=== PATIENT | male | born 1990 | race African-American/Black ===

== ENCOUNTER 2016-11-04 18:07 | Inpatient (IN) | payer OTHER ==
[~2016-11-04] VITALS: Ht 189.2 cm; Wt 76.7 kg
[2016-11-04 23:36] VITALS: BP 143/83; PULSE 58; RESP 18; TEMP 97.4; O2SAT 98
[2016-11-05] MEDS ORDERED: ACETAMINOPHEN 325 MG TAB PO PRN (01:00)
[2016-11-05] MEDS ORDERED: MAGNESIUM HYDROXIDE SUSP 30 ML CUP PO PRN (01:00)
[2016-11-05] MEDS ORDERED: diphenhydrAMINE HCL 50 MG/ML VIAL - HS PRN IM (01:00)
[2016-11-05] MEDS ORDERED: BENZTROPINE MESYLATE 1 MG TAB PO PRN (01:00)
[2016-11-05] MEDS ORDERED: BENZTROPINE MESYLATE 2 MG/2 ML VIAL IM PRN (01:00)
[2016-11-05] MEDS ORDERED: ALUMINUM/MAGNESIUM/SIMETH 30 ML CUP PO PRN (01:00)
[2016-11-05] MEDS ORDERED: LORazepam 2 MG/ML VIAL IM PRN (01:00)
[2016-11-05] MEDS: NICOTINE 21 MG/24 HR PATCH T-DERMAL SCH (08:26)
[2016-11-05 09:25] LABS: ANION GAP 15 MEQ/L (5-15); BICARBONATE 21.1 MEQ/L (21.0-32.0); BLOOD UREA NITROGEN 11 MG/DL (7-18); CHLORIDE 104 MEQ/L (98-107); GLOMERULAR FILTRATION RATE 61 ML/MIN (>89); POTASSIUM 3.6 MEQ/L (3.5-5.1); SODIUM (NA) 140 MEQ/L (136-145)
[2016-11-05 09:29] LABS: LDL CHOLESTEROL 126 MG/DL (0-99)
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
[2016-11-05 18:25] VITALS: BP 120/67; PULSE 77; RESP 16; TEMP 98.1; O2SAT 100
[2016-11-05] MEDS: REMOVE OLD NICOTINE PATCH T-DERMAL SCH (21:00)
[2016-11-05 22:12] VITALS: BP 146/80; PULSE 76
[2016-11-05] MEDS: PRAZOSIN HCL 1 MG CAP PO SCH (22:46)
[2016-11-06] MEDS: diphenhydrAMINE HCL 50 MG CAP - HS PRN PO (02:38)
[2016-11-06 06:20] VITALS: BP 147/90; PULSE 54; RESP 18; TEMP 98; O2SAT 96
[2016-11-06] MEDS: ESCITALOPRAM OXALATE 10 MG TAB PO SCH (08:08)
[2016-11-06] MEDS: LORazepam 1 MG TAB PO PRN (08:08)
[2016-11-06] MEDS: NICOTINE 21 MG/24 HR PATCH T-DERMAL SCH (08:09)
[2016-11-06 10:05] LABS: HEMOGLOBIN A1a 1.3 %; HEMOGLOBIN A1b 1.5 %; HEMOGLOBIN Ao 86.4 %; HEMOGLOBIN LA1C 1.9 %; HEMOGLOBIN P3 3.2 %
--- NOTE | 2016-11-06 17:25 | HHI.PYPN ---
Subjective Remarks Pt seen and discussed with staff. He is tolerating medications without side effects. He reports that he slept about 3 hours last night. He received a dose of ativan this morning for an anxiety attack. He reports depression persists but he is feeling better today. NO AH today. Pt signed an ROR but states that he did so because he wanted to make sure that he could see the doctor again. Explained to pt that he would be seen by a physician daily until discharge and pt requested to rescind ROR. Objective Alert: Yes [place]: Person, Place, Date, Situation Mood: Depressed Affect: Flat Memory Intact: Immediate, Recent, Remote Hallucinations: Other (none ) Delusions: No Delusion Type: Other (none) Suicidal: Ideation (denies) Homicidal: Ideation (denies) Insight/Judgment limited Vitals/IOs Vital Signs Date Time Temp Pulse Resp B/P Pulse Ox O2 Delivery O2 Flow Rate FiO2 11/06/16 06:20 98.0 54 18 147/90 96 Assessment & Plan Problem List: (1) Adjustment disorder, unspecified ICD Code: F43.20 (2) Post-traumatic stress disorder, chronic ICD Code: F43.12 Assessment & Plan Pt improving. Continue current tx plan. Estimated LOS: days Justification for Cont. Inpt. monitoring for safety Request HC Surrog/Guard Advoc?: Shahana Vinson MD Nov 06, 2016 17:25
[2016-11-06 18:11] VITALS: BP 144/70; PULSE 67; RESP 18; TEMP 98.3; O2SAT 97
[2016-11-06] MEDS: REMOVE OLD NICOTINE PATCH T-DERMAL SCH (21:00)
[2016-11-06 21:10] VITALS: BP 137/100; PULSE 101
[2016-11-06] MEDS: PRAZOSIN HCL 1 MG CAP PO SCH (21:12)
[2016-11-07 06:00] VITALS: BP 151/89; PULSE 80; RESP 16; TEMP 98; O2SAT 97
[2016-11-07] MEDS: ESCITALOPRAM OXALATE 10 MG TAB PO SCH (08:45)
[2016-11-07] MEDS: NICOTINE 21 MG/24 HR PATCH T-DERMAL SCH (08:45)
--- NOTE | 2016-11-07 10:04 | HHI.PYPN ---
Subjective Remarks Patient seen and examined with nurse. Chart reviewed. I note that the patient has been sleeping very poorly. Case discussed with nursing staff who reports that the patient had an episode of agitation this morning in which he broke a chair in his room. He was medicated with Ativan. On my examination today, the patient reports that he broke the chair because he was stressed out with his situation with his younger brother who lives in [facility]. He says that he tried to call his brother but couldn't reach him and "freaked out. I tried to cope but it didn't work." He says that he chose the chair because "it was breakable and the most affordable thing to replace." Patient denies any suicidal or homicidal ideation although he does admit to some ongoing violent thoughts, more along the lines of further destruction of property. He denies any audiovisual hallucination. He does describe some behavioral activation in the setting of initiation of Lexapro that raises concern for induction of a mixed- manic state, especially in light of his poor sleep. We discussed modifications to the treatment plan to ameliorate his current symptoms and settle on the plan as outlined below. We also discuss adjustments to the needed length of stay in light of this change in clinical presentation, and the patient agrees to remain through Monday, although he is reluctant to stay much longer than that. Review of Systems Except as stated in HPI: all other systems reviewed are Neg Objective Alert: Yes [place]: Person, Place, Date, Situation Mood: Anxious Affect: Flat Memory Intact: Comment (Grossly intact on clinical exam.) Hallucinations: Other (Denies AVH) Delusions: No Delusion Type: Other (No evident delusions) Suicidal: Ideation (Denies SI) Homicidal: Ideation (Denies HI but admits to violent thoughts towards property) Insight/Judgment Fair at best Remarks No motor abnormalities noted. Thought processes fairly linear. Speech somewhat slow but otherwise within normal limits. Grooming and hygiene fair. Labs Labs reviewed. No new labs. Vitals/IOs Vital Signs Date Time Temp Pulse Resp B/P Pulse Ox O2 Delivery O2 Flow Rate FiO2 11/07/16 06:00 98.0 80 16 151/89 97 Intake and Output 11/06/16 11/06/16 11/07/16 08:00 16:00 00:00 Intake Total 600 ml Balance 600 ml Assessment & Plan Problem List: (1) Adjustment disorder, unspecified Assessment & Plan: Concern for e.g. BPAD mixed state ICD Code: F43.20 (2) Post-traumatic stress disorder, chronic ICD Code: F43.12 Assessment & Plan Concern for induction of mixed state with SSRI. Discontinue Lexapro. Initiate Zyprexa at a dose of 10 mg at bedtime with plans to titrate to effect. Also initiated Ambien as needed for sleep, and I have discussed with nursing staff giving the Zyprexa a chance to work this evening as it will be his first dose before resorting to the Ambien to avoid overmedicating the patient. Patient has Ativan available as needed for anxiety. Continue to monitor on the inpatient unit; low threshold to transfer to the higher acuity unit if patient' s presentation warrants it. Patient does note that he smokes and cigarette craving is contributing to his anxiety, and I have offered him nicotine replacement but he declines this. Continue other medications and care as ordered. Justification for Cont. Inpt. Concern for impairment in safety. Medication changes in process. High risk for decompensation in a less restrictive environment. Discharge Planning Pending psychiatric stabilization. Request HC Surrog/Guard Advoc?: No Keshav Clemente MD Nov 07, 2016 10:04
[2016-11-07] MEDS: LORazepam 1 MG TAB PO PRN (14:22)
[2016-11-07 16:00] VITALS: BP 150/78; PULSE 63; RESP 18; TEMP 97.5; O2SAT 99
[2016-11-07 19:44] VITALS: BP 137/92; PULSE 94
[2016-11-07] MEDS: PRAZOSIN HCL 1 MG CAP PO SCH (20:51)
[2016-11-07] MEDS: REMOVE OLD NICOTINE PATCH T-DERMAL SCH (21:00)
[2016-11-07] MEDS ORDERED: OLANZapine 10 MG TAB PO SCH (21:00)
[2016-11-07] MEDS: ZOLPIDEM TARTRATE 5 MG TAB PO PRN (21:33)
[2016-11-08 05:27] VITALS: BP 132/74; PULSE 98; RESP 18; TEMP 98.6; O2SAT 99
[2016-11-08] MEDS: NICOTINE 21 MG/24 HR PATCH T-DERMAL SCH (09:00)
--- NOTE | 2016-11-08 12:05 | HHI.PYPN ---
Subjective Remarks Patient seen and examined. Chart reviewed. Case discussed in treatment team with counselor, nurse and occupational therapist. Counselor has received collateral information from the patient's fianc who verbalizes concern regarding increased paranoia prior to admission, which is atypical for the patient. Nurse notes that the patient has been no further behavioral problems since breaking a chair yesterday morning. Occupational therapist notes that the patient reports that he wants to find his purpose. On my examination today , the patient presents as somewhat hypervigilant and watchful. He hears another person speaking in the next room and casts his eyes around warily but can be reassured that this 'voice' is benign. He denies any AVH. He denies any SI/HI. He feels like the Zyprexa was helpful and denies side effects from medications. No physical complaints. I discuss my differential diagnosis with patient and highlight concerns for mood episode or first break psychosis. I recommend that we continue to observe the patient on the inpatient unit and pursue a medical workup for first-break psychosis, including labs and MRI brain , but patient refuses. He remains discharge focused, and I am subsequently told by the corporate secretary that he completed an ROR shortly before noon. Review of Systems Except as stated in HPI: all other systems reviewed are Neg Objective Alert: Yes [place]: Person, Place, Date, Situation Mood: Anxious Affect: Blunted Memory Intact: Comment (intact) Hallucinations: Other (denies AVH but appears a little internally preoccupied) Delusions: No Delusion Type: Other (no jacek delusions) Suicidal: Ideation (denies suicidal ideation) Homicidal: Ideation (denies homicidal ideation) Insight/Judgment Poor Remarks No motor abnormalities noted. Thought process somewhat perseverative on discharge. Speech within normal limits for rate, tone and volume. Grooming and hygiene good. Labs Labs reviewed. Vitals/IOs Vital Signs Date Time Temp Pulse Resp B/P Pulse Ox O2 Delivery O2 Flow Rate FiO2 11/08/16 05:27 98.6 98 18 132/74 99 Assessment & Plan Problem List: (1) Adjustment disorder, unspecified Assessment & Plan: Concern for bipolar illness or perhaps first break psychosis ICD Code: F43.20 (2) Post-traumatic stress disorder, chronic ICD Code: F43.12 Assessment & Plan Patient has completed right of release that will tomorrow shortly before noon. He is refusing medical workup for first break psychosis. I will titrate patient's Zyprexa to 15 mg this evening and observe the patient overnight. Barring some clinical deterioration overnight, it will likely be the case that he will not meet criteria for involuntary psychiatric hospitalization at the time of the expiration of his right of release. Continue to monitor on the inpatient unit in the meantime. Continue other medications and care as ordered. Justification for Cont. Inpt. Medication changes in process. Discharge Planning Possible discharge under right of release tomorrow. Request HC Surrog/Guard Advoc?: No Keshav Clemente MD Nov 08, 2016 12:05
--- NOTE | 2016-11-08 14:54 | PD.TTN ---
Present for Treatment Team Treatment Team Staff: Provider (Dr Clemente), Nurse (Augustin), Psych Therapist ( Yaz ), Occupational Therapist (Cesar ) Patient Problems 1. Discharge planning 2. Medication compliance 3. Knowledge deficit 4. Lack of coping skills Progress Toward Goals Provider Input: Doctor will look into the ROR and will not file for a petition to court to keep pt here longer if he remains in good behavioral control Doctor would like to encourage pt to remain for further treatment Nurse Input: Pt has filed a ROR but not sure about the time when he filed it Pt is very motivated today and in good mood denying any AVH and is exercising in his room Psych Therapist Input: Pt remains discharge focused and appears to focus on finding outlets such as exercise to not become upset or remain in behavioral control he would like to leave [facility] and is stating he is open to follow up outpatient Occupational Therapist Input: He attends groups regularly and he is very athletic. Yaz Taylor [facility] Nov 08, 2016 14:54
[2016-11-08] MEDS ORDERED: PADIMATE (CHAPSTICK) 4.5 GM TUBE TOPICAL PRN (15:00)
[2016-11-08 16:16] VITALS: BP 156/95; PULSE 102; RESP 18; TEMP 98.3; O2SAT 97
[2016-11-08 20:23] VITALS: BP 136/82; PULSE 85
[2016-11-08] MEDS: REMOVE OLD NICOTINE PATCH T-DERMAL SCH (21:00)
[2016-11-08] MEDS: PRAZOSIN HCL 1 MG CAP PO SCH (21:00)
[2016-11-09 05:28] VITALS: BP 137/82; PULSE 113; RESP 18; TEMP 97.5; O2SAT 100
[2016-11-09] MEDS: NICOTINE 21 MG/24 HR PATCH T-DERMAL SCH (09:00)
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
[2016-11-09] MEDS ORDERED: OLANZapine IM 10 MG VIAL IM PRN (12:45)
[2016-11-09 15:55] LABS: FREE T4 1.27 NG/DL (0.76-1.46)
[2016-11-09] MEDS: LORazepam 1 MG TAB PO PRN (19:12)
[2016-11-09] MEDS: REMOVE OLD NICOTINE PATCH T-DERMAL SCH (21:00)
[2016-11-09] MEDS: ZOLPIDEM TARTRATE 5 MG TAB PO PRN (21:47)
[2016-11-09] MEDS: diphenhydrAMINE HCL 50 MG CAP - HS PRN PO (21:47)
[2016-11-09] MEDS: PRAZOSIN HCL 1 MG CAP PO SCH (21:47)
[2016-11-09 21:56] VITALS: BP 155/94; PULSE 67; RESP 17; TEMP 98; O2SAT 98
[2016-11-10] MEDS: ZOLPIDEM TARTRATE 5 MG TAB PO PRN (00:23)
[2016-11-10 06:11] VITALS: BP 130/75; PULSE 92; RESP 16; TEMP 97.9; O2SAT 99
[2016-11-10] MEDS: NICOTINE 21 MG/24 HR PATCH T-DERMAL SCH (09:00)
[2016-11-10] MEDS ORDERED: GADODIAMIDE PF 287 MG/ML 5 ML VIAL (for RAD MRI) IV ONE (09:57)
--- NOTE | 2016-11-10 10:52 | RADRPT ---
EXAM DATE/TIME: 11/10/2016 09:36 [place] COMPARISON: No previous studies available for comparison. INDICATIONS : Psychosis. CONTRAST: 14 cc Omniscan (gadodiamide) IV MEDICAL HISTORY : Renal calculi. SURGICAL HISTORY : None. ENCOUNTER: Initial ACUITY: 4-6 days PAIN SCORE: 0/10 LOCATION: head. TECHNIQUE: Multiplanar, multisequence MRI of the brain was performed both prior to and following the administrat ion of paramagnetic contrast. FINDINGS: CEREBRUM: The ventricles are normal for age. No evidence of midline shift, mass lesion, hemorrhage or acute in farction. No extraaxial fluid collections are seen. The pituitary gland and suprasellar cistern are normal in configuration. WHITE MATTER: No significant signal abnormalities are seen in the white matter. POSTERIOR FOSSA: The cerebellum and brainstem are intact. The 4th ventricle is midline. The cerebellopontine angle is unremarkable. The cerebellar tonsils are normal in position. DIFFUSION IMAGING: No focal areas of restricted diffusion are seen. No evidence of acute infarction. EXTRACRANIAL: The visualized portions of the orbits and paranasal sinuses are unremarkable. POST-CONTRAST: No abnormal areas of parenchymal or dural enhancement. No evidence of blood-brain barrier breakdown. CONCLUSION: 1. Negative examination. Alexander Shane MD on November 10, 2016 at 10:47 Board Certified Radiologist. This report was verified electronically.
--- NOTE | 2016-11-10 13:49 | PD.CONS ---
Provisional Diagnosis Admission Date Nov 04, 2016 at 21:57 [place] I. 1. Adjustment disorder, unspecified Rule out contribution from cannabis use 2. Posttraumatic stress disorder, chronic 3. Cannabis use, rule out use disorder Galien II. Deferred Galien V. GAF is 40 presently History of Present Illness Service Psychiatry Consult Requested By Primary Care Physician Unknown HPI Mr. Dominique is a 26-year-old male with a reported history of cannabis use and associated psychiatric complications who presents in transfer from [facility] under a Us act. Reviewing the records from [facility], it appears that the patient presented with auditory hallucinations of voices and "bad thoughts." He was placed under a Us act by the provider there. Reviewing our own electronic medical record, it appears this is patient's first visit to [facility]. Patient seen and examined with nurse West. Chart reviewed. Case discussed with nursing staff. On my examination today, the patient says that he has been feeling overwhelmed by several psychosocial stressors. He says that he is hoping to get soon to his fianc, although his parents do not support the marriage. He also notes that he recently lost his job at a [employer]. He says that he has been smoking some cannabis which generally makes him feel more anxious, and in this context he began to feel very much more anxious. He accused his girlfriend of infidelity he tells me, which is very much out of his character, and she recommended that he seek psychiatric help, which he subsequently did. He reports that he may have been experiencing some auditory phenomena of "mumbles" when he was feeling acutely stressed although he denies any audiovisual hallucinations now. Thought process seems generally linear and logical, and I can elicit no current audiovisual hallucinations or delusional beliefs. He denies any suicidal or homicidal ideation, intent or plan on direct questioning. Mood is fair. Perhaps some mild depressive symptomatology such as poor appetite. No hypomanic or manic symptoms. The patient does allude to a significant trauma history and describes avoidance, hyperarousal and nightmares as a consequence of this trauma. The remainder of the psychiatric ROS is negative. No physical complaints at this time. Past psychiatric history: The patient reports a history of mental issues related to cannabis use. He is not currently under the care of a psychiatrist. He reports that he was admitted after the breakup with a girlfriend one or 2 years ago to the inpatient psychiatric unit. He denies a history of suicide attempts. 11/10/16 Above note dictated by Dr. alegria noted and agreed with. Also is most recent progress note dictated 11/09 [address] and [address] with. Dr. Clemente has initiate a Us act on this gentleman he has been her first opinion petition supporting the Us act. Patient seen by me in day room continues quite psychotic delusional somewhat grandiose and spiritual with this. Dr. Clemente has done the first opinion petition supporting Us act. I agree. Patient meets criteria for involuntary psychiatric hospitalization under the Us act. Thus I will cosign second opinion petition supporting Us act Past Family Social History Coded Allergies: No Known Allergies (Unverified , 11/05/16) Current Medications Medications (Trade) Dose Ordered Sig/Olayinka Route Start Time Stop Time Status Last Admin (Ativan) 1 mg Q6H PRN PO 11/05/16 01:00 11/09/16 19:12 (Ativan Inj) 1 mg Q6H PRN IM 11/05/16 01:00 11/07/16 08:42 (Cogentin) 1 mg Q12H PRN PO 11/05/16 01:00 (Cogentin Inj) 1 mg Q12H PRN IM 11/05/16 01:00 (Benadryl) 50 mg HS PRN PO 11/05/16 01:00 11/09/16 21:47 (Tylenol) 650 mg Q4H PRN PO 11/05/16 01:00 (Milk Of Magnesia Liq) 30 ml DAILY PRN PO 11/05/16 01:00 (Mag-Al Plus Susp Liq) 30 ml Q6H PRN PO 11/05/16 01:00 (Habitrol 21 Mg Patch.24 Hr) 1 patch DAILY T-DERMAL 11/05/16 09:00 Miscellaneous Information 1 HS T-DERMAL 11/05/16 21:00 (Minipress) 1 mg HS PO 11/05/16 21:00 11/09/16 21:47 (Ambien) 5 mg HS PRN PO 11/07/16 10:15 11/10/16 00:23 (ZyPREXA) 15 mg HS PO 11/08/16 21:00 11/09/16 21:47 (Chapstick) 1 applic UNSCH PRN TOPICAL 11/08/16 15:00 11/10/16 11:42 (ZyPREXA INJ) 10 mg HS PRN IM 11/09/16 12:45 Patient's Strengths (min. 2) In a monitored setting. Verbally fluent. Physical Exam Vital Signs Vital Signs Date Time Temp Pulse Resp B/P Pulse Ox O2 Delivery O2 Flow Rate FiO2 11/10/16 06:11 97.9 92 16 130/75 99 I/O 11/09/16 11/09/16 11/10/16 08:00 16:00 00:00 Intake Total 360 ml Balance 360 ml Mental Status Examination Alert tall Afro-Indian male calm with me but quite intense Appearance Mildly disheveled Speech: Rapid Orientation: Person, Place Memory: Unremarkable Thought Process: Linear Thought Content: Paranoid Language Poor Fund of Knowledge Poor Hallucination Type: None (times appears to be responding to internal stimuli) Attention and Concentration: Other (poor) Suicidal Ideation: No (denies) Previous Suicide Attempts: No (denies) Homicidal Ideation: No (deny) Previous Homicide Attempts: No (denies) Insight: Poor Judgment: Poor Affect: Other (slight increase range intensity) Mood: Other (restricted) Motor Activity: Normal gait Assessment & Plan Problem List: (1) Brief psychotic disorder ICD Code: F23 (2) Post-traumatic stress disorder, chronic ICD Code: F43.12 Assessment & Plan Estimated LOS: days Request HC Surrog/Guard Advoc?: Yes Aneudy Milner MD Nov 10, 2016 13:49
--- NOTE | 2016-11-10 14:04 | HHI.PYPN ---
Subjective Remarks Patient seen and examined with counselor. Chart reviewed. Case discussed with nursing staff who reports patient has been a behavioral problem. On my examination today, the patient seems fairly ambivalent and somewhat anxious. He initially requests discharge and then later says that he wants to stay through the weekend until Monday. Less frankly paranoid, although the patient does make comments about feeling like he is being misled. No hallucinations. No suicidal or homicidal ideation. Denies side effects from medications. Insight into illness remains fairly poor. No physical complaints. Review of Systems ROS Limitations: Poor Historian Except as stated in HPI: all other systems reviewed are Neg Objective Alert: Yes [place]: Person, Place, Date, Situation Mood: Anxious (remains somewhat anxious) Affect: Blunted Memory Intact: Comment (intact) Hallucinations: Other (less internally preoccupied) Delusions: Yes Delusion Type: Paranoid (less paranoid) Suicidal: Ideation (No SI) Homicidal: Ideation (No HI) Insight/Judgment Poor Remarks No motor abnormalities noted. Grooming and hygiene fair to good. Thought process more linear today. Labs Test 11/09/16 14:55 Ammonia 47 MCMOL/L Vitamin B12 Level 387 PG/ML Free Thyroxine 1.27 NG/DL Thyroid Stimulating Hormone 0.803 uIU/ML 3rd Gen Rapid Plasma Reagin NON-REACTIVE Labs reviewed. Besides mild hyperammonemia, no abnormalities noted. Last Impressions Brain MRI 11/10/16 0000 Signed Impressions: Service Date/Time: November 09:36 - CONCLUSION: 1. Negative examination. Alexander Shane MD MRI of the brain unremarkable. Vitals/IOs Vital Signs Date Time Temp Pulse Resp B/P Pulse Ox O2 Delivery O2 Flow Rate FiO2 11/10/16 06:11 97.9 92 16 130/75 99 Intake and Output 11/09/16 11/09/16 11/10/16 08:00 16:00 00:00 Intake Total 360 ml Balance 360 ml Assessment & Plan Problem List: (1) Brief psychotic disorder ICD Code: F23 (2) Post-traumatic stress disorder, chronic ICD Code: F43.12 Assessment & Plan Continue Zyprexa 15 mg at bedtime. Patient will receive his second dose this evening. To consider further titration of this agent. Continue prazosin as ordered. Check a follow-up ammonia level tomorrow morning. Continue to monitor on the inpatient unit. Continue other medications and care as ordered. Justification for Cont. Inpt. Risk for decompensation in a less restrictive environment. Discharge Planning Pending psychiatric stabilization. Request HC Surrog/Guard Advoc?: Yes Keshav Clemente MD Nov 10, 2016 14:04
[2016-11-10 19:04] VITALS: BP 141/88; PULSE 72; RESP 16; TEMP 98; O2SAT 99
[2016-11-10] MEDS: PRAZOSIN HCL 1 MG CAP PO SCH (20:24)
[2016-11-10] MEDS: REMOVE OLD NICOTINE PATCH T-DERMAL SCH (20:24)
[2016-11-10] MEDS: diphenhydrAMINE HCL 50 MG CAP - HS PRN PO (22:50)
[2016-11-11 05:33] VITALS: BP 151/79; PULSE 90; RESP 16; TEMP 98.6
[2016-11-11] MEDS: NICOTINE 21 MG/24 HR PATCH T-DERMAL SCH (09:00)
[2016-11-11] MEDS ORDERED: PRAZ1 PO (12:16)
[2016-11-11] MEDS ORDERED: OLAN15TA PO (12:16)
--- NOTE | 2016-11-11 12:16 | HHI.DS ---
Psychiatry Discharge Summary Advance Directive: No Reason Not Provided: patient declined at this time Admission Admission Date Nov 04, 2016 at 21:57 Admission Diagnosis: Brief History Mr. Dominique is a 26-year-old male with a reported history of cannabis use and associated psychiatric complications who presents in transfer from [facility] under a Us act. Reviewing the records from [facility], it appears that the patient presented with auditory hallucinations of voices and "bad thoughts." He was placed under a Us act by the provider there. Reviewing our own electronic medical record, it appears this is patient's first visit to [facility]. Patient seen and examined with nurse West. Chart reviewed. Case discussed with nursing staff. On my examination today, the patient says that he has been feeling overwhelmed by several psychosocial stressors. He says that he is hoping to get soon to his fianc, although his parents do not support the marriage. 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 He says that he has been smoking some cannabis which generally makes him feel more anxious, and in this context he began to feel very much more anxious. He accused his girlfriend of infidelity he tells me, which is very much out of his character, and she recommended that he seek psychiatric help, which he subsequently did. He reports that he may have been experiencing some auditory phenomena of "mumbles" when he was feeling acutely stressed although he denies any audiovisual hallucinations now. Thought process seems generally linear and logical, and I can elicit no current audiovisual hallucinations or delusional beliefs. He denies any suicidal or homicidal ideation, intent or plan on direct questioning. Mood is fair. Perhaps some mild depressive symptomatology such as poor appetite. No hypomanic or manic symptoms. The patient does allude to a significant trauma history and describes avoidance, hyperarousal and nightmares as a consequence of this trauma. The remainder of the psychiatric ROS is negative. No physical complaints at this time. Past psychiatric history: The patient reports a history of mental issues related to cannabis use. He is not currently under the care of a psychiatrist. He reports that he was admitted after the breakup with a girlfriend one or 2 years ago to the inpatient psychiatric unit. He denies a history of suicide attempts. 11/10/16 Above note dictated by Dr. alegria noted and agreed with. Also is most recent progress note dictated 11/09 noted and agreed with. Dr. Clemente has initiate a Us act on this gentleman he has been her first opinion petition supporting the Us act. Patient seen by me in day room continues quite psychotic delusional somewhat grandiose and spiritual with this. Dr. Clemente has done the first opinion petition supporting Us act. I agree. Patient meets criteria for involuntary psychiatric hospitalization under the Us act. Thus I will cosign second opinion petition supporting Us act Tobacco Use In Past 30 Days: 5 or More Cigarettes/Day Alcohol Use: Never Results Blood Pressure 151 / 79 Vital Signs Date Time Temp Pulse Resp B/P Pulse Ox O2 Delivery O2 Flow Rate FiO2 11/11/16 05:33 98.6 90 16 151/79 11/10/16 19:04 99 Laboratory Tests Test 11/09/16 11/11/16 14:55 09:08 Ammonia 47 MCMOL/L 34 MCMOL/L (11-32) (11-32) Imaging Last Impressions Brain MRI 11/10/16 0000 Signed Impressions: Service Date/Time: November 09:36 - CONCLUSION: 1. Negative examination. Alexander Shane MD Medications Approp Antipsych med options 1 - Minimum of three failed multiple trials of monotherapy. 2 - Documented plan to taper to monotherapy due to previous use of multiple meds OR cross-taper in progress at D/C. 3 - Documentation of augmentation of Clozapine. 4 - Justification other than those listed in allowable values 1-3, document here : Discharge Discharge Disposition: Discharge Home Discharge Instructions Diet Instructions: As Tolerated, No Restrictions Activities you can perform: Weight Bearing as Jaime Scheduled Appointment: [facility] Appointment Date: Nov 14, 2016 Appointment Time: 8:00am Discharge/Advance Care Plan Health Problems: (1) Brief psychotic disorder (2) Post-traumatic stress disorder, chronic Goals to promote your health * To prevent worsening of your condition and complications * To maintain your health at the optimal level Directions to meet your goals Take your medications as prescribed Follow your dietary instruction Follow activity as directed Keep your appointments as scheduled Take your immunizations and boosters as scheduled If your symptoms worsen call your PCP, if no PCP go to Urgent Care Center or Emergency Room For 26/12 questions related to your inpatient stay or results of tests pending at discharge, please contact Dr. Keshav Clemente at Smoking is Dangerous to Your Health. Avoid second hand smoking Keshav Clemente MD Nov 11, 2016 12:16
[2016-11-11] MEDS: LORazepam 1 MG TAB PO PRN (13:13)
--- NOTE | 2016-11-11 13:19 | HHI.PYPN ---
Subjective Remarks Patient seen and examined with counselor. Chart reviewed. Case discussed with nursing staff. On my examination today, the patient is somewhat irritable and remains a little paranoid. Overall though, he is less psychotic-appearing than in previous days. He denies any SI/HI/AVH. He initially is insisting on discharge today, and I did prepare his discharge but emphasized it was against my advice. I was called by the nurse a short time later to say that the patient had reconsidered and wanted to remain in the hospital. I return to see him. He is somewhat tearful. He requests to be retained in the hospital over the weekend. We discuss titrating his Zyprexa in the meantime, and he is agreeable to this. Denies side effects from medications. No physical complaints. Review of Systems ROS Limitations: Poor Historian Except as stated in HPI: all other systems reviewed are Neg Objective Alert: Yes [place]: Person, Place, Date, Situation Mood: Anxious (remains fairly anxious) Affect: Tearful Memory Intact: Comment (intact) Hallucinations: Other (denies AVH) Delusions: Yes Delusion Type: Paranoid (lessening) Suicidal: Ideation (denies suicidal ideation) Homicidal: Ideation (denies homicidal ideation) Insight/Judgment Poor Remarks No motor abnormalities noted. Thought process more linear. Grooming and hygiene fair. Labs Test 11/11/16 09:08 Ammonia 34 MCMOL/L Labs reviewed. Hyperammonemia improved. Vitals/IOs Vital Signs Date Time Temp Pulse Resp B/P Pulse Ox O2 Delivery O2 Flow Rate FiO2 11/11/16 05:33 98.6 90 16 151/79 11/10/16 19:04 99 Assessment & Plan Problem List: (1) Brief psychotic disorder ICD Code: F23 (2) Post-traumatic stress disorder, chronic ICD Code: F43.12 Assessment & Plan Titrate Zyprexa to 20 mg at bedtime. Continue prazosin as ordered. Continue to monitor on the inpatient unit. Continue other medications and care as ordered. Justification for Cont. Inpt. Medication changes in process. Discharge Planning Anticipate discharge beginning of next week, barring some clinical deterioration. Request HC Surrog/Guard Advoc?: Yes Keshav Clemente MD Nov 11, 2016 13:19
[2016-11-11 18:20] VITALS: BP 144/90; PULSE 70; RESP 18; TEMP 97.8; O2SAT 100
[2016-11-11] MEDS: PRAZOSIN HCL 1 MG CAP PO SCH (20:33)
[2016-11-11] MEDS: REMOVE OLD NICOTINE PATCH T-DERMAL SCH (20:34)
[2016-11-11] MEDS: OLANZapine 10 MG TAB PO SCH (20:34)
[2016-11-12 05:38] VITALS: BP 146/81; PULSE 83; RESP 18; TEMP 97.5; O2SAT 98
[2016-11-12] MEDS: NICOTINE 21 MG/24 HR PATCH T-DERMAL SCH (09:00)
--- NOTE | 2016-11-12 15:11 | HHI.PYPN ---
Subjective Remarks Patient was seen and case discussed with nursing. Patient notes an improvement in his mental status. He says he feels clear and more organized. Does somewhat minimize his symptoms on admission. Says his hallucinations have resolved. No delusions elicited. Behaving well on the unit and compliant with medications. Patient is not tearful as noted yesterday and is asking about discharge Objective Alert: Yes [place]: Person, Place, Date, Situation Mood: Calm Affect: Appropriate Memory Intact: Comment (intact) Hallucinations: Other (denies AVH) Delusions: Yes Delusion Type: Paranoid (lessening) Suicidal: Ideation (denies suicidal ideation) Homicidal: Ideation (denies homicidal ideation) Insight/Judgment Poor Vitals/IOs Vital Signs Date Time Temp Pulse Resp B/P Pulse Ox O2 Delivery O2 Flow Rate FiO2 11/12/16 05:38 97.5 83 18 146/81 98 Assessment & Plan Problem List: (1) Brief psychotic disorder ICD Code: F23 (2) Post-traumatic stress disorder, chronic ICD Code: F43.12 Assessment & Plan Continue current treatment plan Justification for Cont. Inpt. Patient will decompensate in a less restrictive setting Request HC Surrog/Guard Advoc?: Yes Ricci Pino DO Nov 12, 2016 15:11
[2016-11-12 18:04] VITALS: BP 156/82; PULSE 74; RESP 18; TEMP 98.9; O2SAT 100
[2016-11-12] MEDS: REMOVE OLD NICOTINE PATCH T-DERMAL SCH (20:21)
[2016-11-12] MEDS: OLANZapine 10 MG TAB PO SCH (21:17)
[2016-11-12] MEDS: PRAZOSIN HCL 1 MG CAP PO SCH (21:17)
[2016-11-13 06:18] VITALS: BP 134/82; PULSE 72; RESP 16; TEMP 97.8; O2SAT 98
[2016-11-13] MEDS: NICOTINE 21 MG/24 HR PATCH T-DERMAL SCH (09:00)
--- NOTE | 2016-11-13 14:42 | HHI.PYPN ---
Subjective Remarks Patient was seen and case discussed with nursing. Patient is pleasant and cooperative with exam. Reports a new stressor of breaking up with his fiance last night. Patient says he is distressed and upset but denies suicidal ideation intent or plan. He is asking me about resources and couple's therapy was suggested.'s compliant with his medication, social with other patients and nursing on the unit. Continues to read books. Denies auditory visual hallucinations Objective Alert: Yes [place]: Person, Place, Date, Situation Mood: Calm Affect: Appropriate Memory Intact: Comment (intact) Hallucinations: Other (denies AVH) Delusions: Yes Delusion Type: Paranoid (lessening) Suicidal: Ideation (denies suicidal ideation) Homicidal: Ideation (denies homicidal ideation) Insight/Judgment Poor Vitals/IOs Vital Signs Date Time Temp Pulse Resp B/P Pulse Ox O2 Delivery O2 Flow Rate FiO2 11/13/16 06:18 97.8 72 16 134/82 98 Assessment & Plan Problem List: (1) Brief psychotic disorder ICD Code: F23 (2) Post-traumatic stress disorder, chronic ICD Code: F43.12 Assessment & Plan Continue current treatment plan Justification for Cont. Inpt. Patient will decompensate in a less restrictive setting Request HC Surrog/Guard Advoc?: Yes Ricci Pino DO Nov 13, 2016 14:42
[2016-11-13 18:03] VITALS: BP 135/69; PULSE 68; RESP 17; TEMP 98.3; O2SAT 96
[2016-11-13] MEDS: LORazepam 1 MG TAB PO PRN (18:10)
[2016-11-13] MEDS: PRAZOSIN HCL 1 MG CAP PO SCH (20:32)
[2016-11-13] MEDS: OLANZapine 10 MG TAB PO SCH (20:32)
[2016-11-13] MEDS: REMOVE OLD NICOTINE PATCH T-DERMAL SCH (20:33)
[2016-11-14 06:03] VITALS: BP 141/79; PULSE 100; RESP 16; TEMP 98.7; O2SAT 99
[2016-11-14] MEDS: NICOTINE 21 MG/24 HR PATCH T-DERMAL SCH (08:56)
[2016-11-14] MEDS ORDERED: PRAZ1CAP PO (11:37)
[2016-11-14] MEDS ORDERED: ZYPR20TA PO (11:37)
--- NOTE | 2016-11-14 11:47 | HHI.DS ---
Psychiatry Discharge Summary Inpatient Psychiatric care?: Yes Advance Directive: No Reason Not Provided: patient declined at this time Mental Health AdvanceDirective: No Health Care Proxy: No Admission Admission Date Nov 04, 2016 at 21:57 Admission Diagnosis: (1) Adjustment disorder, unspecified ICD Code: F43.20 (2) Post-traumatic stress disorder, chronic ICD Code: F43.12 Brief History Mr. Dominique is a 26-year-old male with a reported history of cannabis use and associated psychiatric complications who presents in transfer from [facility] under a Us act. Reviewing the records from [facility], it appears that the patient presented with auditory hallucinations of voices and "bad thoughts." He was placed under a Us act by the provider there. Reviewing our own electronic medical record, it appears this is patient's first visit to [facility]. Patient seen and examined with nurse Jenna. Chart reviewed. Case discussed with nursing staff. On my examination today, the patient says that he has been feeling overwhelmed by several psychosocial stressors. He says that he is hoping to get soon to his fianc, although his parents do not support the marriage. He also notes that he recently lost his job at a [employer] He says that he has been smoking some cannabis which generally makes him feel more anxious, and in this context he began to feel very much more anxious. He accused his girlfriend of infidelity he tells me, which is very much out of his character, and she recommended that he seek psychiatric help, which he subsequently did. He reports that he may have been experiencing some auditory phenomena of "mumbles" when he was feeling acutely stressed although he denies any audiovisual hallucinations now. Thought process seems generally linear and logical, and I can elicit no current audiovisual hallucinations or delusional beliefs. He denies any suicidal or homicidal ideation, intent or plan on direct questioning. Mood is fair. Perhaps some mild depressive symptomatology such as poor appetite. No hypomanic or manic symptoms. The patient does allude to a significant trauma history and describes avoidance, hyperarousal and nightmares as a consequence of this trauma. The remainder of the psychiatric ROS is negative. No physical complaints at this time. Past psychiatric history: The patient reports a history of mental issues related to cannabis use. He is not currently under the care of a psychiatrist. He reports that he was admitted after the breakup with a girlfriend one or 2 years ago to the inpatient psychiatric unit. He denies a history of suicide attempts. Tobacco Use In Past 30 Days: 5 or More Cigarettes/Day Alcohol Use: Never Hospital Course Patient was admitted to a locked, inpatient psychiatric unit. Appropriate precautions were in place throughout patient's hospital stay. Patient was seen and examined daily on the unit by psychiatry and also visited by counselor. Medications were adjusted. Patient did experience some behavioral activation from Lexapro. This was discontinued. Patient was started on Zyprexa for mood stabilization and psychosis, and this was titrated to effect. Patient tolerated psychotropic medications well without side effects. Patient had improvement in his presenting psychiatric symptomatology. Patient's behavior improved with benefit of psychopharmacologic treatment. There was no evidence of any suicidality or homicidality on the inpatient unit. On the day of discharge: Patient seen and examined. Chart reviewed. Case discussed with nursing staff who reports the patient has been no behavioral problem. On my examination today, the patient is in good spirits. He feels like he has achieved maximal benefit from this hospital stay and is requesting discharge from the inpatient psychiatric unit today. Mood is stable and I can elicit no depressive or hypomanic/manic symptoms. He is future oriented. He denies suicidal or homicidal ideation, intent or plan. He denies audiovisual hallucinations and I can elicit no delusional beliefs. He has decided to break things off with his fianc while on the inpatient unit but is bearing up under this new stressor well without any evidence of any decompensation. He denies side effects from medications. No physical complaints. Weighing the acute, chronic, and protective factors and based on the available evidence, I wig dresser to a reasonable degree of medical certainty that the patient is at low imminent risk of harm to self or others from mental illness as defined under the Us act and his level of function is adequate for outpatient care. Patient does not therefore meet criteria for involuntary psychiatric hospitalization. Given that the patient is requesting discharge from the inpatient unit today and given that he does not meet criteria for involuntary psychiatric hospitalization any longer, I must arrange for his discharge today with psychiatric follow-up as arranged by counselor. Patient is also to follow-up with primary care. I counseled the patient regarding warning signs for need to return to the psychiatric emergency room as part of the general safety plan. I counseled the patient to abstain from any substances of abuse. Results Blood Pressure 141 / 79 Vital Signs Date Time Temp Pulse Resp B/P Pulse Ox O2 Delivery O2 Flow Rate FiO2 11/14/16 06:03 98.7 100 16 141/79 99 Item Value Date Time Sodium Level 140 MEQ/L 11/05/16 0840 Potassium Level 3.6 MEQ/L 11/05/16 0840 Chloride Level 104 MEQ/L 11/05/16 0840 Carbon Dioxide Level 21.1 MEQ/L 11/05/16 0840 Blood Urea Nitrogen 11 MG/DL 11/05/16 0840 Creatinine 1.69 MG/DL H 11/05/16 0840 Hemoglobin A1c 5.4 % 11/05/16 0840 Ammonia 47 MCMOL/L H 11/09/16 1455 Ammonia 34 MCMOL/L H 11/11/16 0908 Vitamin B12 Level 387 PG/ML 11/09/16 1455 Free Thyroxine 1.27 NG/DL 11/09/16 1455 Thyroid Stimulating Hormone 3rd Gen 0.803 uIU/ML 11/09/16 1455 HIV (1&2) Antibody NEGATIVE 11/09/16 1455 Rapid Plasma Reagin NON-REACTIVE 11/09/16 1455 Summary of Procedures None done Imaging Last Impressions Brain MRI 11/10/16 0000 Signed Impressions: Service Date/Time: November 09:36 - CONCLUSION: 1. Negative examination. Alexander Shane MD Pending results at discharge: No Medications # of Antipsychotic meds at D/C: 1 Approp Antipsych med options 1 - Minimum of three failed multiple trials of monotherapy. 2 - Documented plan to taper to monotherapy due to previous use of multiple meds OR cross-taper in progress at D/C. 3 - Documentation of augmentation of Clozapine. 4 - Justification other than those listed in allowable values 1-3, document here : Discharge Discharge Date: Nov 14, 2016 Discharge Diagnosis: (1) Brief psychotic disorder Diagnosis: Principal (stabilized) ICD Code: F23 (2) Post-traumatic stress disorder, chronic Diagnosis: Secondary (stable) ICD Code: F43.12 Cannabis use, rule-out use disorder. GAF on discharge is 60. Mental Status Exam at Disch Patient is casually dressed. He is well groomed. He is awake and alert and oriented to person and hospital at least. No evidence of delirium. No abnormal motor movements noted. Speech is within normal limits for rate, tone and volume. Lying which and fund of knowledge seem average. Mood is good and affect is full and reactive. Thought process linear. No loosening of associations. No evident delusions. Denies audiovisual hallucinations. Denies suicidal or homicidal ideation, intent or plan. Insight and judgment are fair. Pt Condition on Discharge: Stable Discharge Disposition: Discharge Home Discharge Instructions Diet Instructions: As Tolerated, No Restrictions Activities you can perform: Weight Bearing as Jaime Scheduled Appointment: as per counselor's notes New Medications: Olanzapine (Zyprexa) 20 Mg Tab 20 MG PO HS Mental Health Days 15 Ref 1 TAB Prazosin (Prazosin) 1 Mg Cap 1 MG PO HS Mental Health Days 15 Ref 1 CAP Discharge Time <= 30 minutes Discharge/Advance Care Plan Health Problems: (1) Brief psychotic disorder (2) Post-traumatic stress disorder, chronic Goals to promote your health * To prevent worsening of your condition and complications * To maintain your health at the optimal level Directions to meet your goals Take your medications as prescribed Follow your dietary instruction Follow activity as directed Keep your appointments as scheduled Take your immunizations and boosters as scheduled If your symptoms worsen call your PCP, if no PCP go to Urgent Care Center or Emergency Room For 26/12 questions related to your inpatient stay or results of tests pending at discharge, please contact Dr. Keshav Clemente at Smoking is Dangerous to Your Health. Avoid second hand smoking Keshav Clemente MD Nov 14, 2016 11:47
== END 2016-11-14 15:20 | disposition home or self-care (01) | DRG 885 ==
LOC: H270 21:57 → H260 11-05 15:00
PROVIDERS: ADMIT Psychiatry & Neurology Psychiatry; ATTEND Psychiatry & Neurology Psychiatry
DX: F23 Brief psychotic disorder (principal); E72.20 Disorder of urea cycle metabolism, unspecified; F43.20 Adjustment disorder, unspecified; F32.9 Major depressive disorder, single episode, unspecified; F12.90 Cannabis use, unspecified, uncomplicated; F43.12 Post-traumatic stress disorder, chronic; F41.1 Generalized anxiety disorder; F17.210 Nicotine dependence, cigarettes, uncomplicated
CPT/HCPCS: 70553; 80048; 80061; 82140; 82607; 83036; 84439; 84443; 86592; 86703; A9579; J2060; Q0163